=== PATIENT | male | born 1975 | race Asian ===

== ENCOUNTER 2017-09-21 15:19 | Inpatient (IN) | payer SELFPAY ==
[~2017-09-21] VITALS: Ht 172.7 cm; Wt 61.2 kg
[2017-09-21] MEDS ORDERED: LORAZEPAM 2MG/ML CPJ IV STA (15:38)
[2017-09-21] MEDS ORDERED: NALOXONE HCL 1 MG/ML 2ML VIAL IV ONE (16:00)
[2017-09-21 16:23] LABS: BASOPHILS % 0.5 % (0.0-2.0); CHLORIDE 109 mEq/L (98-107); HEMATOCRIT. 40.5 % (42.0-52.0); MEAN CORPUSCULAR HEMOGLOBIN 26.1 pg (28.0-32.0); MEAN CORPUSCULAR VOLUME 81.4 fL (80.0-94.0); MEAN PLATELET VOLUME 7.7 fl (7.4-10.4); NEUTROPHILS % 71.5 % (40.0-76.0); PLATELET 208 x1000/uL (130-400); RED BLOOD CELL COUNT 4.97 mill/uL (4.7-6.1); RED CELL DISTRIBUTION WIDTH 13.7 % (11.6-14.6)
[2017-09-21 16:27] LABS: ETHANOL BLOOD < 10 mg/dL
[2017-09-21] MEDS ORDERED: DEXTROSE 50% WATER 50ML SYRINGE IV ONE ×2 (16:42→18:45)
[2017-09-21] MEDS ORDERED: DEXTROSE 10% WATER 500 ML IV ONE (17:00)
[2017-09-21 17:13] LABS: CREATINE KINASE 535 IU/L (39-308)
[2017-09-21 17:33] LABS: CLARITY URINE CLEAR (CLEAR); COLOR URINE YELLOW (YELLOW); KETONES URINE NEGATIVE (NEGATIVE); LEUKOCYTE ESTERASE URINE NEGATIVE (NEGATIVE); NITRITE URINE NEGATIVE (NEGATIVE); OCCULT BLOOD URINE NEGATIVE (NEGATIVE); PROTEIN URINE NEGATIVE (NEGATIVE); SPECIFIC GRAVITY URINE 1.005 (1.005-1.030); UROBILINOGEN URINE 0.2 E.U./dL (0.2-1.0)
[2017-09-21 17:47] LABS: *AMPHETAMINES SCREEN URINE NEGATIVE (NEGATIVE); *BARBITURATES SCREEN URINE NEGATIVE (NEGATIVE); *BENZODIAZEPINES SCREEN URINE NEGATIVE (NEGATIVE)
[2017-09-21 17:48] LABS: CANNABINOID URINE SCREEN NEGATIVE (NEGATIVE); METHADONE URINE SCREEN NEGATIVE (NEGATIVE); OPIATES URINE SCREEN NEGATIVE (NEGATIVE); PHENCYCLIDINE URINE SCREEN NEGATIVE (NEGATIVE)
[2017-09-21 17:49] LABS: *COCAINE SCREEN URINE NEGATIVE (NEGATIVE)
[2017-09-22] VITALS (12 sets, daily range): BP systolic 95–144; BP diastolic 52–80
[2017-09-22] MEDS ORDERED: GABA-531 PO (00:30)
[2017-09-22] MEDS ORDERED: HUM100IN SQ ×2 (00:30)
[2017-09-22] MEDS ORDERED: DEXTROSE 50% WATER 50ML SYRINGE IV PRN (01:00)
[2017-09-22] MEDS ORDERED: POTASSIUM CHLORIDE 20MEQ TABLET SR PO SCH (01:30)
[2017-09-22] MEDS: BLOOD SUGAR DIAGNOSTIC STRIP TEST SCH ×4 (06:13→21:04)
[2017-09-22 08:11] LABS: CHLORIDE 103 mEq/L (98-107)
[2017-09-22 08:16] LABS: BASOPHILS % 0.3 % (0.0-2.0); EOSINOPHILS % 0.1 % (0.0-5.0); HEMATOCRIT. 39.7 % (42.0-52.0); HEMOGLOBIN. 12.6 g/dL (14.0-18.0); LYMPHOCYTES % 14.8 % (20.0-50.0); MEAN CORPUSCULAR HEMOGLOBIN 25.9 pg (28.0-32.0); MEAN CORPUSCULAR VOLUME 81.4 fL (80.0-94.0); MEAN PLATELET VOLUME 8.5 fl (7.4-10.4); NEUTROPHILS % 77.8 % (40.0-76.0); PLATELET 194 x1000/uL (130-400); RED BLOOD CELL COUNT 4.88 mill/uL (4.7-6.1); RED CELL DISTRIBUTION WIDTH 13.8 % (11.6-14.6)
[2017-09-22] MEDS: GABAPENTIN 300MG CAPSULE PO SCH ×2 (08:22→16:25)
[2017-09-22] MEDS: INSULIN LISPRO 100 UNITS/ML SUBCUT SCH ×4 (08:23→21:57)
[2017-09-22] MEDS ORDERED: MEDICATION NOT ON FORMULARY EA (Gabapentin 300 MG) PO SCH (09:00)
[2017-09-22] MEDS: LEVOFLOXACIN 500MG PREMIX 100 ML IV SCH (11:33)
[2017-09-22] MEDS: INSULIN GLARGINE UD 100 UNITS/ML SYR SUBCUT SCH ×2 (12:08→21:58)
[2017-09-22] MEDS ORDERED: ONDANSETRON 4MG ODT PO PRN (13:15)
[2017-09-22] MEDS ORDERED: INSULIN LISPRO 100 UNITS/ML SUBCUT NR (21:45)
[2017-09-23] VITALS (8 sets, daily range): BP systolic 111–135; BP diastolic 66–78
[2017-09-23] MEDS: BLOOD SUGAR DIAGNOSTIC STRIP TEST SCH ×2 (06:28→12:46)
[2017-09-23] MEDS: INSULIN LISPRO 100 UNITS/ML SUBCUT SCH ×2 (06:28→12:20)
[2017-09-23] MEDS ORDERED: INSULIN LISPRO 100 UNITS/ML SUBCUT SCH (06:50)
[2017-09-23 06:54] LABS: BASOPHILS % 0.7 % (0.0-2.0); EOSINOPHILS % 3.4 % (0.0-5.0); HEMATOCRIT. 40.3 % (42.0-52.0); HEMOGLOBIN. 13.1 g/dL (14.0-18.0); LYMPHOCYTES % 21.6 % (20.0-50.0); MEAN PLATELET VOLUME 7.8 fl (7.4-10.4); MONOCYTES % 10.5 % (2.0-8.0); NEUTROPHILS % 63.8 % (40.0-76.0); PLATELET 210 x1000/uL (130-400); RED BLOOD CELL COUNT 5.04 mill/uL (4.7-6.1); RED CELL DISTRIBUTION WIDTH 13.6 % (11.6-14.6)
[2017-09-23] MEDS: GABAPENTIN 300MG CAPSULE PO SCH (08:11)
[2017-09-23] MEDS: INSULIN GLARGINE UD 100 UNITS/ML SYR SUBCUT SCH (10:23)
[2017-09-23] MEDS: LEVOFLOXACIN 500MG PREMIX 100 ML IV SCH (10:23)
== END 2017-09-23 16:00 | disposition home or self-care (01) | DRG 720 ==
LOC: ER 15:53 → 3WST 17:35 → OBSVTOIN 17:35 → ENRESERV 21:59 → 3WST 09-22 15:47
PROVIDERS: ADMIT Internal Medicine; ATTEND Internal Medicine
DX: A41.9 Sepsis, unspecified organism (principal); G93.41 Metabolic encephalopathy; E87.2 Acidosis; E87.0 Hyperosmolality and hypernatremia; E10.649 Type 1 diabetes mellitus with hypoglycemia without coma; D72.829 Elevated white blood cell count, unspecified; E87.6 Hypokalemia; E87.8 Other disorders of electrolyte and fluid balance, not elsewhere classified; T38.3X5A Adverse effect of insulin and oral hypoglycemic [antidiabetic] drugs, initial encounter; Z79.4 Long term (current) use of insulin; Z79.899 Other long term (current) drug therapy; Y92.89 Other specified places as the place of occurrence of the external cause
CPT/HCPCS: 36415; 70450; 71045; 80048; 80053; 80305; 80307; 80329; 81003; 82550; 82962; 83036; 83605; 85025; 87040; 93005; 96360; 96361; 99291; G0482; J1815; J1956; J2060; J7050; Q0162; A4315